=== PATIENT | male | born 1965 | race Caucasian/White ===

== ENCOUNTER 2019-07-14 11:12 | Outpatient (CLI) | payer OTHER | END 2019-07-14 11:28 | disposition home or self-care (01) | LOC: RAD 11:12 | DX: I11.9 Hypertensive heart disease without heart failure (principal) ==

== ENCOUNTER 2020-08-04 23:24 | Emergency (ER) | payer OTHER ==
[~2020-08-04] VITALS: Ht 172.7 cm; Wt 86.2 kg
[2020-08-05] MEDS ORDERED: KETO10TA2 PO (02:54)
[2020-08-05] MEDS ORDERED: ORPHENADRINE C100 MG PO (02:54)
== END 2020-08-05 03:24 | disposition home or self-care (01) ==
LOC: ER 23:24
DX: M54.5 Low back pain (principal)

== ENCOUNTER 2021-09-07 19:42 | Emergency (ER) | payer OTHER ==
[~2021-09-07] VITALS: Ht 172.7 cm; Wt 81.6 kg
[~2021-09-07 19:42] MED LIST: KETO10TA2 PO; ORPHENADRINE C100 MG PO
== END 2021-09-07 21:36 | disposition home or self-care (01) ==
LOC: ER 19:42
DX: S09.8XXA Other specified injuries of head, initial encounter (principal); X58.XXXA Exposure to other specified factors, initial encounter; Y93.H3 Activity, building and construction; Y92.017 Garden or yard in single-family (private) house as the place of occurrence of the external cause; Y99.8 Other external cause status

== ENCOUNTER 2023-02-04 10:14 | Outpatient (CLI) | payer OTHER | END 2023-02-04 10:23 | disposition home or self-care (01) | LOC: RAD 10:14 | PROVIDERS: ATTEND Internal Medicine | DX: I11.9 Hypertensive heart disease without heart failure (principal); I70.0 Atherosclerosis of aorta ==

== ENCOUNTER 2024-02-25 08:02 | Outpatient (CLI) | payer OTHER | END 2024-02-25 08:11 | disposition home or self-care (01) | LOC: MRI 08:02 | DX: M25.551 Pain in right hip (principal); M70.61 Trochanteric bursitis, right hip | CPT/HCPCS: 73721 ==